=== PATIENT | female | born 1990 | race African-American/Black ===

== ENCOUNTER 2017-05-07 16:47 | Emergency (ER) | payer OTHER ==
[~2017-05-07] VITALS: Ht 134.6 cm; Wt 59.0 kg
[2017-05-07 16:50] VITALS: TEMP 98.1
[2017-05-07 18:00] VITALS: BP 138/88
== END 2017-05-07 18:14 | disposition home or self-care (01) ==
LOC: ED 16:47
DX: J45.901 Unspecified asthma with (acute) exacerbation (principal); R06.00 Dyspnea, unspecified
CPT/HCPCS: 94664; 96374; 99284; J2930